=== PATIENT | male | born 1985 | race Caucasian/White ===

== ENCOUNTER 2023-12-25 23:40 | Emergency (ER) | payer MEDICARE, MEDICAID, SELFPAY ==
--- NOTE | 2023-12-25 | RAD_ITS ---
EXAM: XR CHEST, 2 VIEWS CLINICAL INDICATION: dyspnea TECHNIQUE: Frontal and lateral views of the chest. COMPARISON: No relevant prior studies available. FINDINGS: LUNGS AND PLEURAL SPACES: Unremarkable. No consolidation or edema. No pneumothorax. No effusion. HEART: Unremarkable. Cardiac silhouette not enlarged. MEDIASTINUM: Central airways and mediastinal contour are unremarkable. BONES/JOINTS: Unremarkable. No acute fracture. SOFT TISSUES: Unremarkable. RAD/Chest PA and Lateral IMPRESSION: No radiographic evidence of acute cardiopulmonary disease. Electronically Signed: Rafael Rabago MD at 1:04 EDT ,
[2023-12-25 23:41] VITALS: BP 112/82; PULSE 84; RESP 16; TEMP 36.6; O2SAT 94; BMI 40.9
[2023-12-25 23:43] VITALS: O2SAT 95
--- NOTE | 2023-12-25 23:55 | EKG12_ITS ---
Test Reason : DYSRHYTHMIA Blood Pressure : / mmHG Vent. Rate : 074 BPM Atrial Rate : 074 BPM P-R Int : 174 ms QRS Dur : 094 ms QT Int : 390 ms P-R-T Axes : 028 001 017 degrees QTc Int : 432 ms Normal sinus rhythm Incomplete right bundle branch block Borderline ECG Confirmed by Rafael Man ([id number]), editorial project manager SREE ROLDAN ([id number]) on 12/26/2023 8:11:48 AM Referred By: Confirmed By:Rafael Man
--- NOTE | 2023-12-25 23:56 | ED.VIS.DYS ---
HPI History of Present Illness Chief Complaint: Shortness of Breath Informant: patient Narrative Narrative: 38-year-old male started getting short of breath and anxious 30 minutes ago called EMS because it went on for so long. States he feels better now, the only intervention was EMS talking to him. States he typically does not have anxiety or panic attacks but he thinks that is probably what it was. He has high anxiety, he states he is on medical marijuana because of a history of anxiety depression and PTSD. States he no longer feels dyspneic. He felt no palpitations or chest discomfort. No recent leg pain or swelling. No history of DVT or PE. No recent hospitalization, long travel, or surgery in the past 2 months. PE Risk Factors: Negative for Cancer, OCP + Smoking + > 35, Prior DVT or PE, Recent immobilization, Recent surgery or Recent travel [facility] Medical History (Updated 12/26/23 @ 00:01 by Background Daemon) PTSD (post-traumatic stress disorder) Depression Anxiety HLD (hyperlipidemia) HTN (hypertension) Allergy/AdvReac Type Severity Reaction Status Date / Time No Known Allergies Allergy Verified 12/26/23 00:34 Social History (Updated 12/25/23 @ 23:[address] Ethan Gaines MD) Smoking Status: Former smoker substance use type: marijuana ROS ROS ED Constitutional Constitutional ED: Denies chills or fever(s) Eyes Eyes: Denies change in vision or diplopia ENT ENT ED: Denies rhinorrhea or sore throat Cardiovascular Cardiovascular: Denies chest pain, orthopnea or palpitations Respiratory/Chest Respiratory/Chest: Reports dyspnea; Denies cough, dyspnea on exertion or orthopnea Gastrointestinal Gastrointestinal: Denies abdominal pain, diarrhea, nausea or vomiting Genitourinary Genitourinary ED: Denies dysuria or hematuria Musculoskeletal Musculoskeletal: Denies back pain or neck pain Integumentary Denies abscess or rash Neurologic Neurologic: Denies headache(s), paresthesias or weakness Psychiatric Psychiatric: Reports anxiety and other Details: I was pacing around a lot. ; Denies suicidal ideation or suicidal thoughts EXAM Physical Exam Const Vital Signs: 12/25/23 23:41 12/25/23 23:43 Temperature 98 F Temperature Source Oral Pulse Rate 84 Respiratory Rate 16 Respiratory Effort Normal Respiratory Depth Normal Respiratory Pattern Normal Blood Pressure 112/82 H Blood Pressure Mean 92 Pulse Ox 94 Oxygen Delivery Method Room Air Room Air Positive well nourished and well developed Constitutional Narrative: Comfortable. Speaking calmly with his hands behind his head as if he is relaxing. General Appearance ED: well developed and NAD HEENT Reports moist mucous membranes normocephalic and atraumatic Eyes PERRL and EOMs intact bilaterally Neck full ROM, supple and no JVD Resp normal respiratory effort and clear to auscultation bilaterally Cardio regular rate, regular rhythm and no murmurs Rate: Negative for tachycardic GI non-tender and non-distended Auscultation: normoactive bowel sounds Palpation: soft Back/Spine no CVA tenderness General Back: other FROM Extremity normal to inspection General Extremety ED: Negative for edema, pulses abnormal or tenderness General Extremity: Negative for edema or pulses abnormal Neuro oriented x3, CN's II-XII intact bilaterally and no sensory deficits noted Sensorium / Orientation: awake and alert Motor Exam: strength 5/5 throughout Psych mental status grossly normal Skin no rashes or lesions noted and no wounds MDM MDM MDM Narrative Medical decision making narrative: Patient is asking for something for anxiety, he was given Vistaril 50 mg while we did an EKG and a two-view chest x-ray to rule out pneumothorax given that he smokes marijuana and is at a higher risk for that. His vital signs are normal, he is no longer tachycardic, oxygen saturations are 94% on room air. I am at a very low suspicion that this is a PE especially since his symptoms are resolved so I do not think he needs further emergent workup right now. EKG is normal, the 2 view chest x-ray on my interpretation is normal, patient is doing well after Vistaril and stable for discharge home. Rhythm Strip Rhythm Strip: Sinus Rhythm Rate: 84 Ectopy: None EKG Initial EKG: Attestation: I personally reviewed and interpreted this EKG as follows: Interpretation: Sinus Rhythm and No Acute Injury Pattern Comments: Normal EKG Discharge Plan Triage Chief Complaint: Shortness of Breath ED Provider: Ethan Gaines Dx/Rx/DC Orders Clinical Impression: Anxiety, Acute dyspnea Instructions: ED Dyspnea Primary Care Provider: Brigido Casillas Referrals: Doctor,Your [Non-Staff] - 3-5 Days if not improving Print Language: Armenian Disposition Disposition: Home, Self Care
[2023-12-26] MEDS: hydrOXYzine PAM 25 MG Capsule 50 MG PO (00:33)
[2023-12-26 01:04] VITALS: BP 110/69; PULSE 68; RESP 16; TEMP 36.7; O2SAT 93
== END 2023-12-26 01:08 | disposition home or self-care (01) ==
LOC: ED 12-26 00:15
PROVIDERS: Emergency Provider Emergency Medicine; PCP Family Medicine; Visit Provider Emergency Medicine
DX: F41.9 Anxiety disorder, unspecified (principal); R06.00 Dyspnea, unspecified; F12.90 Cannabis use, unspecified, uncomplicated; Z87.891 Personal history of nicotine dependence
CPT/HCPCS: 71046; 93005; 99283

== ENCOUNTER 2024-01-07 01:06 | Emergency (ER) | payer MEDICARE, MEDICAID, SELFPAY ==
[2024-01-07 01:06] VITALS: BP 120/84; PULSE 102; RESP 16; TEMP 36.1; O2SAT 97; BMI 40.7
--- NOTE | 2024-01-07 01:22 | EX.ED.DYSGE1 ---
HPI History of Present Illness Chief Complaint: Anxiety Informant: patient and EMS Narrative Narrative: 39-year-old male presenting to the emergency room with a chief complaint of anxiety. Patient was seen here towards the end of December for anxiety. He states he sees the counseling center for his mental health. He did not follow-up with him or his primary care doctor after his last ED visit. States tonight he was feeling anxious for most of the day so he smoked some cannabis. Approximately 1 hour later he began to feel more anxious. He states that the cannabis then help calm him down so 30 minutes later he called the ambulance. He states that he feels like he should be less anxious. He does not know the reason why he is feeling anxious. Patient states he is taking his other medications and has them available to them at home. He denies suicidal homicidal ideation [facility] Medical History PTSD (post-traumatic stress disorder) Depression Anxiety HLD (hyperlipidemia) HTN (hypertension) Home Medications ?Medication ?Instructions ?Recorded ?Last Taken ?Type desvenlafaxine succinate 50 mg 50 mg PO DAILY 01/07/24 Unknown History tablet,extended release 24 hr doxepin 25 mg capsule 25 mg PO QHS PRN PRN insomnia 01/07/24 Unknown History gabapentin 300 mg capsule 300 mg PO TID 01/07/24 Unknown History hydrochlorothiazide 25 mg tablet 25 mg PO DAILY 01/07/24 Unknown History ibuprofen 600 mg tablet 600 mg PO TID PRN PRN pain 01/07/24 Unknown History potassium chloride 10 mEq 10 meq PO DAILY 01/07/24 Unknown History tablet,extended release pravastatin 40 mg tablet 40 mg PO QHS 01/07/24 Unknown History risperidone 2 mg tablet 2 mg PO QHS 01/07/24 Unknown History Allergy/AdvReac Type Severity Reaction Status Date / Time No Known Allergies Allergy Verified 01/07/24 01:06 Social History Smoking Status: Former smoker substance use type: marijuana ROS ROS ED Constitutional Constitutional ED: Reports sweats; Denies chills, fever(s) or weight loss Eyes Eyes: Denies change in vision or diplopia ENT ENT ED: Denies ear pain, rhinorrhea or sore throat Cardiovascular Cardiovascular: Reports racing heartbeat; Denies chest pain, orthopnea or palpitations Respiratory/Chest Respiratory/Chest: Denies cough, dyspnea or orthopnea Gastrointestinal Gastrointestinal: Reports nausea; Denies abdominal pain, diarrhea or vomiting Genitourinary Genitourinary ED: Denies dysuria, hematuria or urinary frequency Musculoskeletal Musculoskeletal: Denies arthralgias or myalgias Integumentary Denies abscess or rash Neurologic Neurologic: Denies headache(s) or weakness Psychiatric Psychiatric: Reports anxiety; Denies depression, suicidal ideation or suicidal thoughts Endocrine Endocrinology: Denies polydipsia, polyphagia or polyuria Allergic/Immunologic Allergic/Immunologic ED: Denies mouth swelling, tongue swelling or urticaria EXAM Physical Exam Narrative Exam Narrative: 39-year-old male smells heavily of cannabis. He is laying back comfortably in the bed. He appears in no acute distress. Const Vital Signs: 01/07/24 01:06 Temperature 96.9 F L Temperature Source Temporal Pulse Rate 102 H Respiratory Rate 16 Blood Pressure 120/84 H Blood Pressure Mean 96 Pulse Ox 97 Positive well nourished, well developed and obese General Appearance ED: well developed Nutritional Appearance: obese HEENT Reports normocephalic, head/scalp atraumatic and moist mucous membranes Eyes PERRL and EOMs intact bilaterally Neck no lymphadenopathy, supple and no JVD Resp normal respiratory effort and clear to auscultation bilaterally Cardio regular rate, regular rhythm and no murmurs Rate: tachycardic GI normal to inspection, nondistended, normoactive bowel sounds and non-tender Palpation: soft Back/Spine no CVA tenderness and normal ROM Extremity normal to inspection General Extremety ED: Negative for edema General Extremity: Negative for edema Neuro oriented x3 and CN's II-XII intact bilaterally Neuro Narrative: Patient with very slow deliberate speech. The patient's pupils are sluggish bilaterally. Sensorium / Orientation: alert Motor Exam: strength 5/5 throughout Psych mental status grossly normal Psych Narrative: Patient tells me he is anxious without appearing anxious. No pressured speech. No suicidal homicidal ideation. Mood & Affect: Negative for depressed, anxious or tearful Skin no rashes or lesions noted and no wounds MDM MDM MDM Narrative Medical decision making narrative: Patient may have underlying anxiety disorder that could be complicated by his recent cannabis ingestion. He appears in no acute distress. In fact he looks intoxicated with cannabis. Patient was given a 25 mg tablet of Vistaril. Be discharged to follow-up with the counseling center. History & Record Review Discussion w/independent historian: Patient Discharge Plan Triage Chief Complaint: Anxiety ED Provider: Renato Hemphill Dx/Rx/DC Orders Clinical Impression: Anxiety Instructions: ED Anxiety Reaction Prescriptions: No Action doxepin 25 mg capsule 25 mg PO QHS PRN PRN (Reason: insomnia) potassium chloride 10 mEq tablet extended release 10 meq PO DAILY gabapentin 300 mg capsule 300 mg PO TID hydrochlorothiazide 25 mg tablet 25 mg PO DAILY ibuprofen 600 mg tablet 600 mg PO TID PRN PRN (Reason: pain) desvenlafaxine succinate 50 mg tablet extended release 24 hr 50 mg PO DAILY pravastatin 40 mg tablet 40 mg PO QHS risperidone 2 mg tablet 2 mg PO QHS Primary Care Provider: Brigido Casillas Referrals: Counseling,Center [Group of Physicians] - As soon as possible (You need to call the counseling center on Monday to arrange a follow up appointment to discuss your anxiety and ED Visits) Brigido Casillas MD [Primary Care Provider] - Print Language: Yoruba
[2024-01-07] MEDS: hydrOXYzine PAM 25 MG Capsule PO (01:30)
[2024-01-07 02:11] VITALS: BP 105/74; PULSE 89; RESP 16; TEMP 36.7; O2SAT 97
== END 2024-01-07 02:13 | disposition home or self-care (01) ==
LOC: ED 01:26
PROVIDERS: Emergency Provider Emergency Medicine; PCP Family Medicine; Visit Provider Emergency Medicine
DX: F41.9 Anxiety disorder, unspecified (principal); F12.90 Cannabis use, unspecified, uncomplicated; E78.5 Hyperlipidemia, unspecified; I10 Essential (primary) hypertension; Z79.899 Other long term (current) drug therapy; Z87.891 Personal history of nicotine dependence
CPT/HCPCS: 99282

== ENCOUNTER 2024-01-13 22:50 | Emergency (ER) | payer MEDICARE, MEDICAID, SELFPAY ==
[2024-01-13 22:51] VITALS: BP 111/86; PULSE 110; RESP 18; TEMP 36.6; O2SAT 95; BMI 41.3
--- NOTE | 2024-01-13 23:30 | ED.RN ---
Per the patients request I called, Ed. He informed me that the patient took his 10pm medications, but does not think the patient took his 12am medications.
--- NOTE | 2024-01-14 00:09 | EX.ED.DYSGE1 ---
HPI History of Present Illness Chief Complaint: Anxiety Informant: patient Narrative Narrative: Patient is a 39-year-old male with past med history of hypertension hyperlipidemia PTSD anxiety and depression. He states that this evening he felt like his anxiety worsened and this frightened him and secondary to this he presents to the hospital for evaluation. He states he has had mild improvement of his symptoms upon arrival. She denies any homicidal or suicidal ideation. He denies any recent life stressors. He denies any illicit drug use or excessive stimulant use which could have precipitated his event. [facility] Medical History PTSD (post-traumatic stress disorder) Depression Anxiety HLD (hyperlipidemia) HTN (hypertension) Home Medications ?Medication ?Instructions ?Recorded ?Last Taken ?Type desvenlafaxine succinate 50 mg 50 mg PO DAILY 01/07/24 Unknown History tablet,extended release 24 hr doxepin 25 mg capsule 25 mg PO QHS PRN PRN insomnia 01/07/24 Unknown History gabapentin 300 mg capsule 300 mg PO TID 01/07/24 Unknown History hydrochlorothiazide 25 mg tablet 25 mg PO DAILY 01/07/24 Unknown History ibuprofen 600 mg tablet 600 mg PO TID PRN PRN pain 01/07/24 Unknown History potassium chloride 10 mEq 10 meq PO DAILY 01/07/24 Unknown History tablet,extended release pravastatin 40 mg tablet 40 mg PO QHS 01/07/24 Unknown History risperidone 2 mg tablet 2 mg PO QHS 01/07/24 Unknown History cholecalciferol (vitamin D3) 50 50 mcg PO DAILY 01/13/24 Unknown History mcg (2,000 unit) capsule hydroxyzine HCl 25 mg tablet 25 mg PO 4X/DAY PRN anxiety #40 01/14/24 Unknown Rx tabs Allergy/AdvReac Type Severity Reaction Status Date / Time No Known Allergies Allergy Verified 01/07/24 01:06 Social History Smoking Status: Former smoker substance use type: marijuana ROS ROS ED Constitutional Constitutional ED: Denies chills or fever(s) Eyes Eyes: Denies change in vision ENT ENT ED: Denies sore throat Cardiovascular Cardiovascular: Denies chest pain Respiratory/Chest Respiratory/Chest: Denies cough or dyspnea Gastrointestinal Gastrointestinal: Denies abdominal pain, diarrhea, nausea or vomiting Genitourinary Genitourinary ED: Denies dysuria Musculoskeletal Musculoskeletal: Denies myalgias Integumentary Denies rash Neurologic Neurologic: Denies headache(s) Psychiatric Psychiatric: Reports anxiety; Denies suicidal ideation or suicidal thoughts Hematologic/Lymphatic Hematologic/Lymphatic: Denies easy bleeding or easy bruising EXAM Physical Exam Const Vital Signs: 01/13/24 22:51 Temperature 97.8 F Temperature Source Temporal Pulse Rate 110 H Respiratory Rate 18 Blood Pressure 111/86 H Blood Pressure Mean 94 Pulse Ox 95 Oxygen Delivery Method Room Air Positive well nourished and well developed General Appearance ED: well developed; Negative for pallor HEENT HEENT Narrative: Normocephalic atraumatic Eyes PERRL and EOMs intact bilaterally General Eye ED: Negative for scleral icterus Neck supple Neck Narrative: No nuchal rigidity or meningeal signs Resp normal respiratory effort and clear to auscultation bilaterally Cardio regular rhythm Rate: tachycardic and other Other Details: Tachycardic rate with regular rhythm No murmurs rubs or gallops Radial and carotid pulses are equal and symmetric GI normal to inspection, nondistended, normoactive bowel sounds, non-tender, non-distended and no masses Auscultation: normoactive bowel sounds Palpation: soft Extremity normal to inspection Extremity Narrative: No asymmetric edema no pitting edema negative Homans' sign bilaterally Neuro oriented x3, CN's II-XII intact bilaterally and no sensory deficits noted Sensorium / Orientation: alert Motor Exam: strength 5/5 throughout Psych Psych Narrative: Patient has a nervous/anxious affect Skin no rashes or lesions noted General Skin Exam: Negative for jaundice or pallor MDM MDM MDM Narrative Medical decision making narrative: Patient presented to the ER mildly tachycardic but otherwise stable vitals. He reported a longstanding history of anxiety and states he was having a breakthrough event at home with no obvious stressor. He denies any homicidal or suicidal ideation and he denies any potential cause of the breakthrough anxiety such as excessive stimulant use or illicit drug use. As he is not homicidal or suicidal I do not feel there is need for an emergent psychiatric workup. As patient reports symptoms are spontaneously improving and overall vitals are stable and do not feel there is need for imaging or laboratory studies. Patient was simply medicated at this time with oral Ativan to help reduce his anxiety attack and is otherwise safe for discharge. History & Record Review Discussion w/independent historian: Patient Discharge Plan Triage Chief Complaint: Anxiety ED Provider: Lorenzo Del Cid Dx/Rx/DC Orders Clinical Impression: Anxiety, Post traumatic stress disorder (PTSD), Hypertension, Hyperlipidemia Instructions: ED Anxiety Reaction Prescriptions: New hydroxyzine HCl 25 mg tablet 25 mg PO 4X/DAY PRN (Reason: anxiety) Qty: 40 0RF No Action doxepin 25 mg capsule 25 mg PO QHS PRN PRN (Reason: insomnia) potassium chloride 10 mEq tablet extended release 10 meq PO DAILY gabapentin 300 mg capsule 300 mg PO TID hydrochlorothiazide 25 mg tablet 25 mg PO DAILY ibuprofen 600 mg tablet 600 mg PO TID PRN PRN (Reason: pain) desvenlafaxine succinate 50 mg tablet extended release 24 hr 50 mg PO DAILY pravastatin 40 mg tablet 40 mg PO QHS risperidone 2 mg tablet 2 mg PO QHS cholecalciferol (vitamin D3) 50 mcg (2,000 unit) capsule 50 mcg PO DAILY Primary Care Provider: Brigido Casillas Referrals: Brigido Casillas MD [Primary Care Provider] - Activity Restrictions/Additional Instructions: Continue all of your home medications as directed by your doctor. Add the hydroxyzine as needed for breakthrough anxiety. Make sure to continue your Pristiq/desvenlafaxine for anxiety control Print Language: South African Disposition Disposition: Home, Self Care Discharge Date/Time: 01/14/24 00:15
[2024-01-14] MEDS: LORazepam 1 MG Tablet 2 MG PO (00:12)
== END 2024-01-14 00:15 | disposition home or self-care (01) ==
PROVIDERS: Emergency Provider Emergency Medicine; PCP Family Medicine; Visit Provider Emergency Medicine
DX: F41.9 Anxiety disorder, unspecified (principal); Z87.891 Personal history of nicotine dependence; E78.5 Hyperlipidemia, unspecified; I10 Essential (primary) hypertension; F43.10 Post-traumatic stress disorder, unspecified; F32.A Depression, unspecified; Z79.899 Other long term (current) drug therapy
CPT/HCPCS: 99282

== ENCOUNTER 2024-02-05 19:03 | Emergency (ER) | payer MEDICARE, MEDICAID, SELFPAY ==
[2024-02-05 19:04] VITALS: BP 133/100; PULSE 108; RESP 18; TEMP 36.4; O2SAT 99; BMI 40.4
--- NOTE | 2024-02-05 20:43 | EX.ED.VIS.PS ---
HPI HPI - Psych History of Present Illness Chief Complaint: Anxiety Detail of Chief Complaint: Anxiety Informant: patient Narrative Narrative: Patient presents the emergency department complaint of anxiety. Patient states that he feels anxious and jittery. He states he took his hydroxyzine and still feels this way. He has a history of anxiety. He does see a psychiatrist. Denies feeling suicidal or homicidal. Denies increased stress of late. Nursing staff also thought they saw bedbugs on patient. Patient states that he had similar issues but has not seen any in his home. [facility] Medical History PTSD (post-traumatic stress disorder) Depression Anxiety HLD (hyperlipidemia) HTN (hypertension) Home Medications ?Medication ?Instructions ?Recorded ?Last Taken ?Type desvenlafaxine succinate 50 mg 50 mg PO DAILY 01/07/24 Unknown History tablet,extended release 24 hr doxepin 25 mg capsule 25 mg PO QHS PRN PRN insomnia 01/07/24 Unknown History gabapentin 300 mg capsule 300 mg PO TID 01/07/24 Unknown History hydrochlorothiazide 25 mg tablet 25 mg PO DAILY 01/07/24 Unknown History ibuprofen 600 mg tablet 600 mg PO TID PRN PRN pain 01/07/24 Unknown History potassium chloride 10 mEq 10 meq PO DAILY 01/07/24 Unknown History tablet,extended release pravastatin 40 mg tablet 40 mg PO QHS 01/07/24 Unknown History risperidone 2 mg tablet 2 mg PO QHS 01/07/24 Unknown History cholecalciferol (vitamin D3) 50 50 mcg PO DAILY 01/13/24 Unknown History mcg (2,000 unit) capsule hydroxyzine HCl 25 mg tablet 25 mg PO 4X/DAY PRN anxiety #40 01/14/24 Unknown Rx tabs Allergy/AdvReac Type Severity Reaction Status Date / Time No Known Allergies Allergy Verified 02/05/24 19:05 Social History Smoking Status: Former smoker substance use type: marijuana ROS ROS ED Review of Systems ROS Unobtainable: other Constitutional Constitutional ED: Reports lethargy; Denies chills, fever(s), sweats or weight loss Eyes Eyes: Denies blurry vision, change in vision or diplopia ENT ENT ED: Denies rhinorrhea or sore throat Cardiovascular Cardiovascular: Denies chest pain, orthopnea or racing heartbeat Respiratory/Chest Respiratory/Chest: Denies cough, dyspnea, dyspnea on exertion, orthopnea or sputum Gastrointestinal Gastrointestinal: Denies abdominal pain, diarrhea, nausea or vomiting Genitourinary Genitourinary ED: Denies dysuria, hematuria or urinary frequency Musculoskeletal Musculoskeletal: Denies arthralgias, back pain, myalgias or neck pain Integumentary Denies abscess, Abrasions or rash Neurologic Neurologic: Denies headache(s) or weakness Psychiatric Psychiatric: Reports anxiety; Denies depression, suicidal ideation or suicidal thoughts Endocrine Endocrinology: Denies polydipsia, polyphagia or polyuria Hematologic/Lymphatic Hematologic/Lymphatic: Denies easy bleeding, easy bruising or lymphadenopathy Allergic/Immunologic Allergic/Immunologic ED: Denies mouth swelling, tongue swelling or urticaria EXAM Physical Exam Const Vital Signs: 02/05/24 19:04 Temperature 97.6 F L Temperature Source Temporal Pulse Rate 108 H Respiratory Rate 18 Blood Pressure 133/100 H Blood Pressure Mean 111 Pulse Ox 99 Positive well nourished and well developed General Appearance ED: well developed and NAD HEENT Reports TM's clear and moist mucous membranes normocephalic and atraumatic; Negative for trauma or tenderness Tympanic Membrane ED: Yes TM's clear Eyes PERRL and EOMs intact bilaterally General Eye ED: Negative for pale conjunctiva or scleral icterus Neck no lymphadenopathy, supple and no JVD General: Negative for tenderness Chest Wall inspection of chest normal and palpation of chest normal Chest: Negative for tenderness Resp normal respiratory effort and clear to auscultation bilaterally Effort and Inspection: Negative for respiratory distress or pain with movement Auscultation: Negative for rhonchi, wheezes or diminished lung sounds Cardio regular rate, regular rhythm, S1 normal heart sound, S2 normal heart sound and no murmurs Peripheral Pulses: pulses 2+ throughout GI normal to inspection, nondistended, normoactive bowel sounds, soft to palpation, non-tender, non-distended and no masses Back/Spine no CVA tenderness and no thoracic nor lumbar tenderness Extremity normal to inspection General Extremety ED: Negative for edema General Extremity: Negative for edema Neuro oriented x3, CN's II-XII intact bilaterally, no sensory deficits noted and gait normal Sensorium / Orientation: awake, alert, oriented to person, oriented to place and oriented to time Motor Exam: strength 5/5 throughout and strength abnormal Psych mental status grossly normal Skin no rashes or lesions noted and no wounds MDM MDM MDM Narrative Medical decision making narrative: Patient presents with anxiety. No suicidal or homicidal ideations. Denies hallucinations. History of chronic anxiety. I did give him a milligram of Ativan. He was observed in the department and he felt much improved after treatment. Patient would like to go home and take his nighttime meds. Will discharge to home and advised to follow-up with a psychiatrist within the next 3 to 5 days. Discharge Plan Triage Chief Complaint: Anxiety ED Provider: Jj Méndez Dx/Rx/DC Orders Clinical Impression: Anxiety Instructions: ED Anxiety Reaction Prescriptions: No Action doxepin 25 mg capsule 25 mg PO QHS PRN PRN (Reason: insomnia) potassium chloride 10 mEq tablet extended release 10 meq PO DAILY gabapentin 300 mg capsule 300 mg PO TID hydrochlorothiazide 25 mg tablet 25 mg PO DAILY ibuprofen 600 mg tablet 600 mg PO TID PRN PRN (Reason: pain) desvenlafaxine succinate 50 mg tablet extended release 24 hr 50 mg PO DAILY pravastatin 40 mg tablet 40 mg PO QHS risperidone 2 mg tablet 2 mg PO QHS cholecalciferol (vitamin D3) 50 mcg (2,000 unit) capsule 50 mcg PO DAILY hydroxyzine HCl 25 mg tablet 25 mg PO 4X/DAY PRN (Reason: anxiety) Qty: 40 0RF Primary Care Provider: Brigido Casillas Referrals: Brigido Casillas MD [Primary Care Provider] - Activity Restrictions/Additional Instructions: Follow-up with your psychiatrist within the next 3 to 5 days. Print Language: Slovak Disposition Disposition: Home, Self Care
[2024-02-05] MEDS: LORazepam 1 MG Tablet PO (20:56)
== END 2024-02-05 22:06 | disposition home or self-care (01) ==
PROVIDERS: Emergency Provider Emergency Medicine; PCP Family Medicine; Visit Provider Emergency Medicine
DX: F41.9 Anxiety disorder, unspecified (principal); F12.90 Cannabis use, unspecified, uncomplicated; Z87.891 Personal history of nicotine dependence
CPT/HCPCS: 99282